=== PATIENT | female | born 1990 | race Caucasian/White ===

== ENCOUNTER 2017-12-14 10:25 | Emergency (ER) | payer SELFPAY ==
--- NOTE | 2017-12-14 12:16 | RAD REPORT ---
EXAM DESCRIPTION: RAD - Ankle Right 3 View - 12/14/2017 11:48 am CLINICAL HISTORY: Right ankle pain status post injury FINDINGS: No fracture or dislocation is seen.
[2017-12-14] MEDS ORDERED: DIAZEPAM 2 MG TABLET ONE (13:35)
[2017-12-14] MEDS ORDERED: HYDROCODONE/APAP 5/325 MG TAB ONE (13:35)
--- NOTE | 2017-12-14 13:36 | EDPHYS ---
Physician Documentation [facility] Name: Lula Iraheta Age: 27 yrs Sex: Female : 1990 Arrival Date: 12/14/2017 Time: 10:30 Bed 23 Private MD: None, None ED Physician Adebayo Miller HPI: 12/14 15:30 This 27 yrs old Female presents to ER via Wheelchair with complaints of Ankle snw Injury. 15:30 The patient presents with pain, that is acute. The complaints affect the right ankle. snw Onset: The symptoms/episode began/occurred suddenly, today. Context: The problem was sustained at work, resulted from an old injury, high grade ankle sprain, The mechanism of injury is unknown. The patient is unable to bear weight. The patient is not able to ambulate. Associated signs and symptoms: Pertinent positives: swelling, pain, inability to bear weight. Severity of symptoms: At their worst the symptoms were moderate, severe. The patient has experienced a previous episode. The patient has not recently seen a physician. 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 - Social history:: Smoking status: Patient/guardian denies using tobacco. - Ebola Screening: : Patient negative for fever greater than or equal to 101.5 degrees Fahrenheit, and additional compatible Ebola Virus Disease symptoms Patient denies exposure to infectious person Patient denies travel to an Ebola-affected area in the 21 days before illness onset No symptoms or risks identified at this time. ROS: 15:29 Constitutional: Negative for fever, chills, and weight loss, Eyes: Negative for injury, snw pain, redness, and discharge, ENT: Negative for injury, pain, and discharge, Neck: Negative for injury, pain, and swelling, Cardiovascular: Negative for chest pain, palpitations, and edema, Respiratory: Negative for shortness of breath, cough, wheezing, and pleuritic chest pain, Abdomen/GI: Negative for abdominal pain, nausea, vomiting, diarrhea, and constipation, Back: Negative for injury and pain, : Negative for injury, bleeding, discharge, and swelling, Skin: Negative for injury, rash, and discoloration, Neuro: Negative for headache, weakness, numbness, tingling, and seizure. 15:29 MS/extremity: Positive for decreased range of motion, pain, swelling, tenderness, of the right ankle. Exam: 15:21 Constitutional: This is a well developed, well nourished patient who is awake, alert, snw and in no acute distress. Head/Face: Normocephalic, atraumatic. Eyes: Pupils equal round and reactive to light, extra-ocular motions intact. Lids and lashes normal. Conjunctiva and sclera are non-icteric and not injected. Cornea within normal limits. Periorbital areas with no swelling, redness, or edema. ENT: Nares patent. No nasal discharge, no septal abnormalities noted. Tympanic membranes are normal and external auditory canals are clear. Oropharynx with no redness, swelling, or masses, exudates, or evidence of obstruction, uvula midline. Mucous membranes moist. Neck: Trachea midline, no thyromegaly or masses palpated, and no cervical lymphadenopathy. Supple, full range of motion without nuchal rigidity, or vertebral point tenderness. No Meningismus. Chest/axilla: Normal chest wall appearance and motion. Nontender with no deformity. No lesions are appreciated. Cardiovascular: Regular rate and rhythm with a normal S1 and S2. No gallops, murmurs, or rubs. Normal PMI, no JVD. No pulse deficits. Respiratory: Lungs have equal breath sounds bilaterally, clear to auscultation and percussion. No rales, rhonchi or wheezes noted. No increased work of breathing, no retractions or nasal flaring. Abdomen/GI: Soft, non-tender, with normal bowel sounds. No distension or tympany. No guarding or rebound. No evidence of tenderness throughout. Back: No spinal tenderness. No costovertebral tenderness. Full range of motion. Skin: Warm, dry with normal turgor. Normal color with no rashes, no lesions, and no evidence of cellulitis. Neuro: Awake and alert, GCS 15, oriented to person, place, time, and situation. Cranial nerves II-XII grossly intact. Motor strength 5/5 in all extremities. Sensory grossly intact. Cerebellar exam normal. Normal gait. Psych: Awake, alert, with orientation to person, place and time. Behavior, mood, and affect are within normal limits. 15:21 Musculoskeletal/extremity: Extremities: grossly normal except: decreased ROM, swelling, ROM: limited passive range of motion due to pain, in the right ankle, Circulation is intact in all extremities. Sensation intact. Vital Signs: 10:41 BP 121 / 83; Pulse 93; Resp 16; Temp 97.8; Pulse Ox 99% on R/A; Weight 104.33 kg; aj Height 5 ft. 7 in. (170.18 cm); 13:38 BP 99 / 68; Pulse 84; Resp 16; Temp 98.3; Pulse Ox 99% on R/A; Pain 7/10; ch 10:41 Body Mass Index 36.02 (104.33 kg, 170.18 cm) aj MDM: 12:41 Patient medically screened. snw 15:26 Data reviewed: vital signs, nurses notes. Data interpreted: Pulse oximetry: on room air snw is 99 %. Interpretation: normal. Counseling: I had a detailed discussion with the patient and/or guardian regarding: the historical points, exam findings, and any diagnostic results supporting the discharge/admit diagnosis, radiology results, the need for outpatient follow up, for definitive care, to return to the emergency department if symptoms worsen or persist or if there are any questions or concerns that arise at home. Special discussion: Based on the history and exam findings, there is no indication for further emergent testing or inpatient evaluation. I discussed with the patient/guardian the need to see the orthopedic surgeon for further evaluation of the symptoms. I discussed with the patient/guardian the need to see the primary care provider for further evaluation of the symptoms. 12/14 10:42 Order name: XRAY Ankle RIGHT 3 view; Complete Time: 12:28 12/14 13:37 Order name: Frank wrap-joint; Complete Time: 13:37 ch Administered Medications: 13:28 Drug: [place] 5 mg-325 mg 1 tabs Route: PO; ch 13:53 Follow up: Response: No adverse reaction; Marked relief of symptoms ch 13:28 Drug: Valium 2 mg Route: PO; ch 13:53 Follow up: Response: No adverse reaction; Marked relief of symptoms ch Disposition: 18:31 Co-signature as Attending Physician, Adebayo Miller MD I agree with the assessment and kdr plan of care. Disposition: 12/14/17 13:35 Discharged to Home. Impression: Sprain of ankle. - Condition is Stable. - Discharge Instructions: Elastic Bandage and RICE, Ankle Sprain, Cast or Splint Care, Adult, Ankle Pain, Cryotherapy, Heat Therapy. - Prescriptions for Diclofenac Sodium 75 mg Oral Tablet Sustained Release - take 1 tablet by ORAL route 2 times per day; 30 tablet. orphenadrine citrate 100 mg Oral Tablet Sustained Release - take 1 tablet by ORAL route 2 times per day As needed; 20 tablet. - Work release form, Medication Reconciliation Form, Thank You Letter, Antibiotic Education, Prescription Opioid Use form. - Follow up: Private Physician; When: 2 - 3 days; Reason: Recheck today's complaints, Continuance of care, Re-evaluation by your physician. Follow up: Gadiel Acosta MD; When: 2 - 3 days; Reason: Recheck today's complaints, Continuance of care. Signatures: Dispatcher [employer] Paulette Pham RN RN ch Myers, Amanda, RN RN aj Rittger, Kevin, MD MD [facility] Mabel Martinez, STOCK PARTS FABRICATOR-C STOCK PARTS FABRICATOR-Csnw Corrections: (The following items were deleted from the chart) 13:36 13:24 Walking boot ordered. [facility] 13:54 13:35 12/14/2017 13:35 Discharged to Home. Impression: Sprain of ankle. Condition is ch Stable. Forms are Medication Reconciliation Form, Thank You Letter, Antibiotic Education, Prescription Opioid Use. Follow up: Private Physician; When: 2 - 3 days; Reason: Recheck today's complaints, Continuance of care, Re-evaluation by your physician. Follow up: Dr. Gadiel Acosta; When: 2 - 3 days; Reason: Recheck today's complaints, Continuance of care. snw
--- NOTE | 2017-12-14 13:36 | ER ---
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 Swelling aj present. CMS intact. Transition of care: patient was not received from another setting of care. Onset of symptoms was December 14, 2017. Risk Assessment: Do you want to hurt yourself or someone else? Patient reports no desire to harm self or others. Initial Sepsis Screen: Does the patient meet any 2 criteria? No. Patient's initial sepsis screen is negative. Does the patient have a suspected source of infection? No. Patient's initial sepsis screen is negative. Care prior to arrival: None. 10:39 Method Of Arrival: Wheelchair aj 10:39 Acuity: JANETT 4 aj Triage Assessment: 10:40 General: Appears in no apparent distress. comfortable, Behavior is calm, cooperative, aj appropriate for age. Pain: Complains of pain in chest. Neuro: Level of Consciousness is awake, alert, obeys commands, Oriented to person, place, time, situation, Appropriate for age. Respiratory: Airway is patent Respiratory effort is even, unlabored, Respiratory pattern is regular, symmetrical. Derm: Skin is intact, is healthy with good turgor, Skin is pink, warm \T\ dry. normal. Musculoskeletal: Circulation, motion, and sensation intact. Range of motion: limited in right ankle Reports pain in right ankle. 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 - Social history:: Smoking status: Patient/guardian denies using tobacco. - Ebola Screening: : Patient negative for fever greater than or equal to 101.5 degrees Fahrenheit, and additional compatible Ebola Virus Disease symptoms Patient denies exposure to infectious person Patient denies travel to an Ebola-affected area in the 21 days before illness onset No symptoms or risks identified at this time. Screenin:38 Abuse screen: Denies threats or abuse. Denies injuries from another. Nutritional ch screening: No deficits noted. Tuberculosis screening: No symptoms or risk factors identified. Fall Risk None identified. Assessment: 13:38 General: Appears in no apparent distress. comfortable, Behavior is calm, cooperative, ch appropriate for age. Pain: Complains of pain in right leg and right ankle Pain currently is 7 out of 10 on a pain scale. Respiratory: No deficits noted. Musculoskeletal: Circulation, motion, and sensation intact. Capillary refill < 3 seconds, in bilateral fingers. toes. Range of motion: limited in right ankle Swelling present in right ankle. Vital Signs: 10:41 BP 121 / 83; Pulse 93; Resp 16; Temp 97.8; Pulse Ox 99% on R/A; Weight 104.33 kg; aj Height 5 ft. 7 in. (170.18 cm); 13:38 BP 99 / 68; Pulse 84; Resp 16; Temp 98.3; Pulse Ox 99% on R/A; Pain 7/10; ch 10:41 Body Mass Index 36.02 (104.33 kg, 170.18 cm) aj ED Course: 10:30 Patient arrived in ED. mr 10:30 None, None is Private Physician. mr 10:32 Mabel Martinez FNP-C is [facility]. snw 10:32 Adebayo Miller MD is Attending Physician. snw 10:39 Triage completed. aj 10:41 Arm band placed on left wrist. Patient placed in waiting room, Patient notified of wait aj time. X-ray ordered. 11:48 XRAY Ankle RIGHT 3 view In Process Unspecified. EDMS 11:48 X-ray completed. Patient tolerated procedure well. Patient moved back from radiology. sw 13:28 Paulette Blue, HUMBERTO is Primary Nurse. ch 13:35 Gadiel Acosta MD is Referral Physician. snw 13:38 Patient has correct armband on for positive identification. Bed in low position. Call ch light in reach. Side rails up X 1. Adult w/ patient. Pulse ox on. NIBP on. Warm blanket given. Ice pack to injury. 13:38 No provider procedures requiring assistance completed. Patient did not have IV access ch during this emergency room visit. Frank wrap to right ankle. Administered Medications: 13:28 Drug: [place] 5 mg-325 mg 1 tabs Route: PO; 13:53 Follow up: Response: No adverse reaction; Marked relief of symptoms 13:28 Drug: Valium 2 mg Route: PO; 13:53 Follow up: Response: No adverse reaction; Marked relief of symptoms Outcome: 13:35 Discharge ordered by . neil 13:38 Discharged to home ambulatory, with family. 13:38 Condition: stable 13:38 Discharge instructions given to patient, family, Instructed on discharge instructions, follow up and referral plans. medication usage, Demonstrated understanding of instructions, follow-up care, medications. 13:54 Patient left the ED. Signatures: Dispatcher [employer] EDPaulette Kraft RN RN ch Myers, Amanda, RN RN aj Therrien, Shelly, TOBACCO CUTTER-C TOBACCO CUTTER-Csn Jenny Hensley mr CantrellMarleen
[2017-12-14 14:02] VITALS: O2SAT 99
[2017-12-14 14:03] VITALS: BP 99/68; TEMP 98.3
== END 2017-12-14 13:54 | disposition home or self-care (01) ==
LOC: ER 10:25
DX: S93.401A Sprain of unspecified ligament of right ankle, initial encounter (principal); X58.XXXA Exposure to other specified factors, initial encounter; Y93.9 Activity, unspecified; Y92.89 Other specified places as the place of occurrence of the external cause; Y99.8 Other external cause status
CPT/HCPCS: 99284

== ENCOUNTER 2022-03-14 07:09 | Emergency (ER) | payer SELFPAY ==
[2022-03-14] MEDS ORDERED: KETOROLAC 30 MG/ML INJ ONE (07:56)
[2022-03-14] MEDS ORDERED: dexAMETHasone 10 MG/ML VIAL ONE (07:56)
--- NOTE | 2022-03-14 08:23 | RAD REPORT ---
EXAM DESCRIPTION: RAD - Lumbar Spine 3 Views - 03/14/2022 8:14 am CLINICAL HISTORY: low back pain, radicular pain COMPARISON: No comparisons FINDINGS: A three-view lumbar spine examination was performed. Lumbar bodies are normal in height and alignment. No fracture or acute bony process seen. No disc spa ce narrowing. No other significant findings. No pars defects identified. IMPRESSION: Negative Lumbar Spine examination.
--- NOTE | 2022-03-14 08:37 | ER ---
Nurse's Notes [facility] Name: Lula Reveles Age: 32 yrs Sex: Female : 1990 Arrival Date: 03/14/2022 Time: 07:10 Bed X-Ray Private MD: Diagnosis: Sciatica, left side Presentation: 03/14 07:19 Chief complaint: Patient states: Left lower back pain, radiates down left leg, left leg jl7 feels numb x 2 weeks. Coronavirus screen: Vaccine status: Patient reports receiving the 2nd dose of the covid vaccine. At this time, the client does not indicate any symptoms associated with coronavirus-19. Ebola Screen: No symptoms or risks identified at this time. Initial Sepsis Screen: Does the patient meet any 2 criteria? No. Patient's initial sepsis screen is negative. Does the patient have a suspected source of infection? No. Patient's initial sepsis screen is negative. Risk Assessment: Do you want to hurt yourself or someone else? Patient reports no desire to harm self or others. Onset of symptoms was February 28, 2022. Care prior to arrival: None. 07:19 Method Of Arrival: Ambulatory [facility] 07:19 Acuity: JANETT 4 jl7 Triage Assessment: 07:20 General: Appears in no apparent distress. uncomfortable, Behavior is calm, cooperative, jl7 appropriate for age. Pain: Complains of pain in left low back Pain radiates to left leg Pain currently is 10 out of 10 on a pain scale. Neuro: Level of Consciousness is awake, alert, obeys commands, Oriented to person, place, time, situation. Cardiovascular: Patient's skin is warm and dry. Respiratory: Airway is patent Respiratory effort is even, unlabored, Respiratory pattern is regular, symmetrical. Derm: Skin is pink, warm \T\ dry. 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 - Social history:: Smoking status: Patient denies any tobacco usage or history of. Screenin:03 Abuse screen: Denies threats or abuse. Denies injuries from another. Nutritional jl7 screening: No deficits noted. Tuberculosis screening: No symptoms or risk factors identified. Fall Risk None identified. Assessment: 08:03 Reassessment: Patient appears in no apparent distress at this time. No changes from jl7 previously documented assessment. Pt reports tubal ligation, no chance of , refuses UPT at this time; medicated as ordered and transported to x-ray. Vital Signs: 07:19 BP 130 / 79; Pulse 75; Resp 17; Temp 97.7; Pulse Ox 100% ; Weight 71.67 kg; Height 5 jl7 ft. 7 in. (170.18 cm); Pain 10/10; 07:19 Body Mass Index 24.75 (71.67 kg, 170.18 cm) 7 ED Course: 07:10 Patient arrived in ED. am2 07:12 Raman Gerard PA is PHCP. [facility] 07:20 Triage completed. jl7 07:20 Arm band placed on right wrist. 7 07:53 Stella Prieto, HUMBERTO is Primary Nurse. jl7 08:03 Patient has correct armband on for positive identification. jl7 08:03 No provider procedures requiring assistance completed. Patient did not have IV access jl7 during this emergency room visit. 08:15 Lumbar Spine (3 Views) XRAY In Process Unspecified. EDMS 08:37 Adebayo Miller MD is Attending Physician. [facility] Administered Medications: 08:03 Drug: Ketorolac 30 mg Route: IM; Site: right deltoid; jl7 08:48 Follow up: Response: No adverse reaction; Pain is decreased ss 08:03 Drug: Decadron (dexamethasone) 10 mg Route: IM; Site: left deltoid; jl7 08:49 Follow up: Response: No adverse reaction; Pain is decreased ss Medication: 08:03 VIS not applicable for this client. jl7 Outcome: 08:36 Discharge ordered by . [facility] 08:48 Discharged to home ambulatory. ss 08:48 Condition: good 08:48 Discharge instructions given to patient, Instructed on discharge instructions, follow up and referral plans. medication usage, Demonstrated understanding of instructions, follow-up care, medications, Prescriptions given X 2. 08:49 Patient left the ED. ss Signatures: Dispatcher [employer] EDMS Moustapha Raman, PA PA jmm Smirch, Jennifer, RN RN ss Stella Prieto RN RN jl7 Bella Richter am
--- NOTE | 2022-03-14 08:37 | EDPHYS ---
Physician Documentation [facility] Name: Lula Reveles Age: 32 yrs Sex: Female : 1990 Arrival Date: 03/14/2022 Time: 07:10 Bed X-Ray Private MD: ED Physician Adebayo Miller HPI: 03/14 08:33 This 32 yrs old Female presents to ER via Ambulatory with complaints of Leg Pain - [facility] left, Low Back Pain. 08:33 This is a 32 year old female with no chronic medical conditions that presents to the ED [facility] with complaints of lower back, left buttock pain, which radiates into her left leg. Denies bowel or urinary issues. . 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 - Social history:: Smoking status: Patient denies any tobacco usage or history of. Vital Signs: 07:19 BP 130 / 79; Pulse 75; Resp 17; Temp 97.7; Pulse Ox 100% ; Weight 71.67 kg; Height 5 jl7 ft. 7 in. (170.18 cm); Pain 10/10; 07:19 Body Mass Index 24.75 (71.67 kg, 170.18 cm) [facility] MDM: 07:24 Patient medically screened. [facility] 08:33 Data reviewed: vital signs, nurses notes. Counseling: I had a detailed discussion with [facility] the patient and/or guardian regarding: the historical points, exam findings, and any diagnostic results supporting the discharge/admit diagnosis, the need for outpatient follow up, to return to the emergency department if symptoms worsen or persist or if there are any questions or concerns that arise at home. 03/14 07:30 Order name: Lumbar Spine (3 Views) XRAY; Complete Time: 08:24 [facility] Administered Medications: 08:03 Drug: Ketorolac 30 mg Route: IM; Site: right deltoid; jl7 08:48 Follow up: Response: No adverse reaction; Pain is decreased ss 08:03 Drug: Decadron (dexamethasone) 10 mg Route: IM; Site: left deltoid; jl7 08:49 Follow up: Response: No adverse reaction; Pain is decreased ss Disposition: 16:15 Co-signature as Attending Physician, Adebayo Miller MD I agree with the assessment and kdr plan of care. Disposition Summary: 03/14/22 08:36 Discharge Ordered Location: Home [facility] Condition: Stable jm Diagnosis - Sciatica, left side jmm Followup: [facility] - With: Private Physician - When: 2 - 3 days - Reason: Recheck today's complaints, Continuance of care, Re-evaluation by your physician Discharge Instructions: - Discharge Summary Sheet [facility] - Sciatica Rehab-SportsMed [facility] Forms: - Medication Reconciliation Form [facility] - Thank You Letter [facility] - Antibiotic Education [facility] - Prescription Opioid Use [facility] - Work release form ss Prescriptions: - Zanaflex 4 mg Oral Tablet - take 1 tablet by ORAL route every 8 hours As needed; 20 tablet; Refills: 0, [facility] Product Selection Permitted - Diclofenac Sodium 75 mg Oral Tablet Sustained Release - take 1 tablet by ORAL route 2 times per day; 30 tablet; Refills: 0, Product [facility] Selection Permitted Signatures: Dispatcher [employer] [facility] Adebayo Miller MD MD kdr Mickail, Joel, PA PA [facility] Stella Prieto RN RN jl7 Jennifer Zamora RN ss Corrections: (The following items were deleted from the chart) 07:56 07:30 Urine Dipstick-Ancillary ordered. [facility] jl7 07:56 07:30 Urine Test ordered. [facility] jl7
[2022-03-14 09:08] VITALS: BP 130/79; TEMP 97.7; O2SAT 100
== END 2022-03-14 08:49 | disposition home or self-care (01) ==
LOC: ER 07:09
DX: M54.32 Sciatica, left side (principal)
CPT/HCPCS: 72100; 96372; 99283; J1100